=== PATIENT | female | born 1960 | race Two or more races ===

== ENCOUNTER 2023-06-12 15:11 | Emergency (ER) | payer MEDICAID ==
[~2023-06-12] VITALS: Ht 165.1 cm; Wt 76.6 kg
[~2023-06-12 15:11] MED LIST: METO-6 PO; TRIA75TA11 PO
[2023-06-12 16:01] LABS: Basophils # (auto) 0.1 10 ^3/uL (0-0.2); Basophils % (auto) 0.6 % (0.0-2.0); Eosinophils # (auto) 0.2 10 ^3/uL (0-0.8); Eosinophils % (auto) 1.6 % (0.0-7.0); Hematocrit 37.2 % (36.0-46.0); Hemoglobin 12.7 g/dL (12.2-16.2); Lymphocytes # (auto) 2.4 10 ^3/uL (0.4-5.4); Lymphocytes % (auto) 23.6 % (10.0-50.0); Mean Corpuscular Hemoglobin 31.3 pg (28.0-32.0); Mean Corpuscular Volume 92.1 fL (80.0-100.0); Monocytes # (auto) 0.8 10 ^3/uL (0-1.3); Monocytes % (auto) 8.5 % (0.0-12.0); Neutrophils # (auto) 6.6 10 ^3/uL (1.6-8.6); Neutrophils % (auto) 65.7 % (37.0-80.0); Red Blood Cells 4.04 10^6/uL (4.0-5.20); Red Cell Distribution Width 13.5 % (11.8-14.3)
[2023-06-12 16:09] LABS: Urine Bacteria NONE SEEN /hpf (None Seen); Urine Blood Negative /uL (Negative); Urine Clarity Clear (Clear); Urine Color Colorless (Yellow); Urine Protein, UAD Negative (Negative); Urine Specific Gravity 1.005 (1.001-1.035); Urine Urobilinogen Normal (Negative); Urine WBC 1 /hpf (0 - 5); Urine pH 6.5 (5.0-8.0)
[2023-06-12 16:16] LABS: Albumin 4.1 g/dL (3.4-5.0); Calcium 8.6 mg/dL (8.5-10.1)
[2023-06-12 16:22] LABS: BUN/Creatinine Ratio 17.8 (10.0-20.0); Bilirubin, Total 0.3 mg/dL (0.2-1.0); Total Protein 6.9 g/dL (6.4-8.2)
[2023-06-12] MEDS ORDERED: MECL1TAB42 PO (16:28)
[2023-06-12 16:53] VITALS: BP 13/64; PULSE 95; RESP 18; TEMP 97.9; O2SAT 95
== END 2023-06-12 16:52 | disposition home or self-care (01) ==
LOC: ER 15:11
DX: R51.9 Headache, unspecified (principal); R42 Dizziness and giddiness; I10 Essential (primary) hypertension; Z87.891 Personal history of nicotine dependence; Z98.51 Tubal ligation status
CPT/HCPCS: 36415; 70450; 80053; 81001; 84484; 85025; 93005

== ENCOUNTER 2024-06-05 13:31 | Inpatient (IN) | payer MEDICAID ==
[~2024-06-05] VITALS: Ht 165.1 cm; Wt 77.4 kg
[~2024-06-05 13:31] MED LIST changes: +MECL1TAB42 PO
[2024-06-05 14:03] LABS: Basophils # (auto) 0 10 ^3/uL (0-0.2); Basophils % (auto) 0.4 % (0.0-2.0); Eosinophils # (auto) 0.2 10 ^3/uL (0-0.8); Eosinophils % (auto) 2.1 % (0.0-7.0); Hematocrit 41.7 % (36.0-46.0); Hemoglobin 14.1 g/dL (12.2-16.2); Lymphocytes # (auto) 2.4 10 ^3/uL (0.4-5.4); Mean Corpuscular Hemoglobin 31.4 pg (28.0-32.0); Mean Corpuscular Hgb Conc. 33.8 g/dL (32.0-36.0); Monocytes # (auto) 0.8 10 ^3/uL (0-1.3); Monocytes % (auto) 8.1 % (0.0-12.0); Neutrophils # (auto) 6.4 10 ^3/uL (1.6-8.6); Neutrophils % (auto) 65.4 % (37.0-80.0); Nucleated Red Blood Cells % 0.1 %; Red Blood Cells 4.48 10^6/uL (4.0-5.20); Red Cell Distribution Width 13.9 % (11.8-14.3); White Blood Cell 9.9 10^3/uL (4.4-10.8)
[2024-06-05 14:17] LABS: Alanine Aminotransferase 22 U/L (7-40); Alkaline Phosphatase 90 U/L (46-116); Anion Gap 6 (5-15); Aspartate Aminotransferase 10 U/L (13-40); BUN/Creatinine Ratio 12.2 (10.0-20.0); Bilirubin, Total 0.4 mg/dL (0.2-1.0); Blood Urea Nitrogen 9 mg/dL (9-23); Carbon Dioxide 27 mmol/L (20-30); Chloride 103 mmol/L (98-107); Glucose 96 mg/dL (74-106); Potassium 4.2 mmol/L (3.5-5.1); Sodium 136 mmol/L (136-145)
[2024-06-05 14:18] LABS: Total Protein 7.7 g/dL (5.7-8.2)
[2024-06-05 14:58] LABS: Urine Bacteria None Seen /hpf (None Seen)
[2024-06-05 15:18] LABS: Urine Blood Negative /uL (Negative); Urine Clarity Clear (Clear); Urine Color Yellow (Yellow); Urine Protein, UAD Negative (Negative); Urine Specific Gravity 1.007 (1.001-1.035); Urine Urobilinogen Normal (Negative); Urine WBC 2 /hpf (0 - 5); Urine pH 6.5 (5.0-9.0)
[2024-06-05] MEDS: SODIUM CHLORIDE 0.9% 1,000 ML IV ONE (15:19)
[2024-06-05] MEDS: ONDANSETRON HCL 4 MG/2 ML VIAL IV ONE (15:56)
[2024-06-05] MEDS: MORPHINE SULFATE 4 MG/ML SYR/VIAL IV ONE (15:57)
[2024-06-05 16:04] VITALS: PULSE 96; RESP 18; O2SAT 96
[2024-06-05] MEDS ORDERED: ACETAMINOPHEN 325 MG TAB PO PRN (16:15)
[2024-06-05] MEDS ORDERED: NITROGLYCERIN 0.4 MG SL TAB SL PRN ×2 (16:15)
[2024-06-05] MEDS ORDERED: ONDANSETRON HCL 4 MG/2 ML VIAL IV PRN (16:15)
[2024-06-05 16:45] LABS: INR 1.04 (0.9-1.15)
[2024-06-05 18:33] VITALS: PULSE 96; RESP 18; O2SAT 96
[2024-06-05 19:09] LABS: Erythrocyte Sedimentation Rate 5 mm/hr (0-20)
[2024-06-05 19:30] VITALS: PULSE 87; RESP 21; O2SAT 93
[2024-06-05] MEDS: HYDROcodone-ACET 5/325MG TAB PO PRN (20:01)
[2024-06-05] MEDS: METOPROLOL TARTRATE 25 MG TAB PO SCH (22:00)
[2024-06-05] MEDS: ENOXAPARIN SOD 60 MG/0.6 ML SYRINGE SC SCH (22:03)
[2024-06-05] MEDS: INDOMETHACIN 25 MG CAP PO ONE (22:04)
[2024-06-05] MEDS: ATORVASTATIN 20 MG TAB PO SCH (22:04)
[2024-06-05] MEDS ORDERED: SIMV20TA20 PO (22:34)
[2024-06-05] MEDS ORDERED: METF-370 PO (22:34)
[2024-06-05] MEDS ORDERED: LISI20TA56 PO (22:34)
[2024-06-05] MEDS ORDERED: TRAZ-184 PO (22:34)
[2024-06-05] MEDS ORDERED: OMEP20TA PO (22:34)
[2024-06-05] MEDS ORDERED: CITA-73 PO (22:34)
[2024-06-05] MEDS ORDERED: HYDR-4798 PO (22:34)
[2024-06-05 22:47] VITALS: PULSE 76; RESP 19; O2SAT 95
[2024-06-06] VITALS (8 sets, daily range): BP systolic 117–130; BP diastolic 70–89; PULSE 71–83; RESP 18–22; TEMP 97.1–98.4; O2SAT 90–96
[2024-06-06] MEDS: PANTOPRAZOLE 40 MG TAB PO SCH (06:04)
[2024-06-06 06:24] LABS: Alanine Aminotransferase 22 U/L (7-40); Albumin 4.4 g/dL (3.2-4.8); Alkaline Phosphatase 76 U/L (46-116); Anion Gap 6 (5-15); Aspartate Aminotransferase 11 U/L (13-40); BUN/Creatinine Ratio 15.9 (10.0-20.0); Blood Urea Nitrogen 11 mg/dL (9-23); Calcium 9.6 mg/dL (8.7-10.4); Carbon Dioxide 28 mmol/L (20-30); Chloride 106 mmol/L (98-107); Cholesterol 145 mg/dL (< 200); Glucose 97 mg/dL (74-106); HDL Cholesterol 53 mg/dL (40-59); LDL Cholesterol 73 mg/dL (< 100); Potassium 3.9 mmol/L (3.5-5.1); Sodium 140 mmol/L (136-145); Triglycerides 133 mg/dL (< 150)
[2024-06-06 06:25] LABS: Bilirubin, Total 0.5 mg/dL (0.2-1.0); Total Protein 6.8 g/dL (5.7-8.2)
[2024-06-06 06:28] LABS: Basophils # (auto) 0.1 10 ^3/uL (0-0.2); Basophils % (auto) 0.7 % (0.0-2.0); Eosinophils # (auto) 0.2 10 ^3/uL (0-0.8); Eosinophils % (auto) 2.5 % (0.0-7.0); Hematocrit 37.8 % (36.0-46.0); Lymphocytes # (auto) 2.5 10 ^3/uL (0.4-5.4); Lymphocytes % (auto) 30.4 % (10.0-50.0); Mean Corpuscular Hemoglobin 31.8 pg (28.0-32.0); Mean Corpuscular Hgb Conc. 34.3 g/dL (32.0-36.0); Mean Corpuscular Volume 92.7 fL (80.0-100.0); Monocytes # (auto) 0.8 10 ^3/uL (0-1.3); Monocytes % (auto) 9.3 % (0.0-12.0); Neutrophils # (auto) 4.7 10 ^3/uL (1.6-8.6); Neutrophils % (auto) 57.1 % (37.0-80.0); Red Blood Cells 4.08 10^6/uL (4.0-5.20); Red Cell Distribution Width 13.7 % (11.8-14.3); White Blood Cell 8.1 10^3/uL (4.4-10.8)
[2024-06-06] MEDS: KETOROLAC TROMETH 30 MG/ML 1ML VIAL IV PRN (08:11)
[2024-06-06] MEDS: DOCUSATE SOD 100 MG CAP PO SCH (08:54)
[2024-06-06] MEDS: COLCHICINE 0.6 MG CAP PO SCH (08:54)
[2024-06-06] MEDS: ASPirin 81 mg TAB PO SCH (08:54)
[2024-06-06] MEDS: IBUPROFEN 600 MG TAB PO PRN (09:49)
[2024-06-06] MEDS ORDERED: IBU600T PO (13:32)
[2024-06-06] MEDS ORDERED: COLC1CAP PO (13:32)
[2024-06-06] MEDS ORDERED: PANT40TA2 PO (13:32)
[2024-06-06] MEDS: IBUPROFEN 600 MG TAB PO SCH (18:09)
== END 2024-06-06 19:23 | disposition home or self-care (01) | DRG 207 ==
LOC: ER 13:31 → TELE 16:06 → TELE-WESTW 23:57
PROVIDERS: ADMIT Nurse Practitioner Family; ATTEND Nurse Practitioner Family
DX: I30.9 Acute pericarditis, unspecified (principal); E78.5 Hyperlipidemia, unspecified; F32.A Depression, unspecified; G89.4 Chronic pain syndrome; I10 Essential (primary) hypertension; R73.03 Prediabetes; Z87.891 Personal history of nicotine dependence; Z90.710 Acquired absence of both cervix and uterus
CPT/HCPCS: 36415; 71045; 80053; 80061; 81001; 83036; 83735; 84443; 84484; 85025; 85379; 85610; 85652; 86141; 93005; 93306; 96361; 96374; 96375; G0378; J1885; J2405